=== PATIENT | male | born 1965 | race Caucasian/White ===

== ENCOUNTER 2018-06-25 15:42 | Emergency (ER) | payer OTHER ==
[~2018-06-25] VITALS: Ht 177.8 cm; Wt 108.9 kg
[2018-06-25] MEDS ORDERED: LISINOPRIL10 MG PO (15:53)
[2018-06-25] MEDS ORDERED: HYDROCHLOROTH12.5 M1 PO (15:53)
[2018-06-25 17:09] VITALS: BP 131/93
== END 2018-06-25 17:09 | disposition home or self-care (01) ==
LOC: ER 15:42
DX: S61.211A Laceration without foreign body of left index finger without damage to nail, initial encounter (principal); I10 Essential (primary) hypertension; F17.210 Nicotine dependence, cigarettes, uncomplicated; W26.0XXA Contact with knife, initial encounter; Y93.89 Activity, other specified; Y92.89 Other specified places as the place of occurrence of the external cause; Y99.8 Other external cause status